=== PATIENT | male | born 1970 | race African-American/Black ===

== ENCOUNTER 2021-12-06 13:09 | Inpatient (IN) | payer MEDICAID ==
[~2021-12-06] VITALS: Ht 182.9 cm; Wt 102.5 kg
[~2021-12-06 13:09] MED LIST: ALEVE
[2021-12-06] MEDS ORDERED: HYDROCODONE/ACETAMINOPHEN 5/325MG TABLET PO ONE (14:45)
[2021-12-06] MEDS ORDERED: MORPHINE SULFATE 4 MG/ML CPJ (NOT FOR IM USE) IV STA (15:51)
[2021-12-06] MEDS ORDERED: ONDANSETRON HCL 4MG/2ML INJ IV STA (15:51)
[2021-12-06 16:14] LABS: BASOPHILS % 0.4 % (0.0-2.0); EOSINOPHILS % 0.1 % (0.0-5.0); HEMATOCRIT. 40.7 % (42.0-52.0); HEMOGLOBIN. 13.8 g/dL (14.0-18.0); LYMPHOCYTES % 16.5 % (20.0-50.0); MEAN CORPUSCULAR HEMOGLOBIN 32.9 pg (28.0-32.0); MEAN CORPUSCULAR VOLUME 96.8 fL (80.0-94.0); MEAN PLATELET VOLUME 8.3 fl (7.4-10.4); MONOCYTES % 6.4 % (2.0-8.0); NEUTROPHILS % 76.6 % (40.0-76.0); PLATELET 211 x1000/uL (130-400); RED CELL DISTRIBUTION WIDTH 13.9 % (11.6-14.6)
[2021-12-06 16:20] LABS: CHLORIDE 112 mEq/L (98-107)
[2021-12-06] MEDS ORDERED: GUAIFENESIN 200MG/10ML SUGAR FREE UDC PO PRN (17:00)
[2021-12-06] MEDS ORDERED: MAGNESIUM/ALUMINUM HYDROXIDE/SIMETHICONE 30ML UDC PO PRN (17:00)
[2021-12-06] MEDS ORDERED: DOCUSATE SODIUM 100MG CAPSULE PO PRN (17:00)
[2021-12-06] MEDS ORDERED: IPRATROPIUM/ALBUTEROL 0.5-3(2.5)MG/3ML NEB NEB PRN (17:00)
[2021-12-06] MEDS ORDERED: ONDANSETRON HCL 4MG/2ML INJ IV PRN (17:00)
[2021-12-06] MEDS ORDERED: NITROGLYCERIN 0.4MG TABLET SL SL PRN (17:00)
[2021-12-06] MEDS ORDERED: CLONIDINE 0.1MG TABLET PO PRN (17:00)
[2021-12-06] MEDS ORDERED: ACETAMINOPHEN 325MG TABLET PO PRN ×2 (17:00)
[2021-12-06] MEDS ORDERED: NALOXONE HCL 0.4MG/ML VIAL IV PRN (17:30)
[2021-12-06 17:51] LABS: ETHANOL BLOOD < 10 mg/dL
[2021-12-06 17:53] LABS: TOTAL IRON BINDING CAPACITY 365 ug/dL (250-450)
[2021-12-06] MEDS: MORPHINE SULFATE 2 MG/ML CPJ (NOT FOR IM USE) IV PRN ×2 (17:58→22:46)
[2021-12-06] MEDS ORDERED: ENOXAPARIN 30MG/0.3ML SYR SUBCUT SCH (18:00)
[2021-12-06 18:06] LABS: FOLIC ACID (FOLATE) SERUM 13.5 ng/mL (>5.38)
[2021-12-06] MEDS: KETOROLAC 15MG/ML VIAL IV PRN (20:25)
[2021-12-06] MEDS: FAMOTIDINE 20MG TABLET PO SCH (22:44)
[2021-12-06] MEDS: ENOXAPARIN 30MG/0.3ML SYR SUBCUT SCH (22:45)
[2021-12-07 03:15] VITALS: BP 166/98
[2021-12-07] MEDS: MORPHINE SULFATE 2 MG/ML CPJ (NOT FOR IM USE) IV PRN ×5 (03:56→23:21)
[2021-12-07 04:00] VITALS: BP 166/98
[2021-12-07 08:00] VITALS: BP 134/85
[2021-12-07] MEDS: ENOXAPARIN 30MG/0.3ML SYR SUBCUT SCH ×2 (09:00→22:48)
[2021-12-07] MEDS: KETOROLAC 15MG/ML VIAL IV PRN (10:06)
[2021-12-07] MEDS: FAMOTIDINE 20MG TABLET PO SCH ×2 (10:09→22:06)
[2021-12-07 11:56] LABS: BASOPHILS % 0.4 % (0.0-2.0); EOSINOPHILS % 0.4 % (0.0-5.0); HEMATOCRIT. 37.4 % (42.0-52.0); HEMOGLOBIN. 12.7 g/dL (14.0-18.0); LYMPHOCYTES % 34.5 % (20.0-50.0); MEAN CORPUSCULAR HEMOGLOBIN 32.5 pg (28.0-32.0); MEAN CORPUSCULAR VOLUME 95.7 fL (80.0-94.0); MEAN PLATELET VOLUME 8.4 fl (7.4-10.4); MONOCYTES % 6.8 % (2.0-8.0); NEUTROPHILS % 57.9 % (40.0-76.0); PLATELET 210 x1000/uL (130-400); RED BLOOD CELL COUNT 3.91 mill/uL (4.7-6.1); RED CELL DISTRIBUTION WIDTH 13.9 % (11.6-14.6)
[2021-12-07 12:00] VITALS: BP 147/94
[2021-12-07 12:11] LABS: CHLORIDE 111 mEq/L (98-107)
[2021-12-07 12:15] LABS: PHOSPHORUS 2.5 mg/dL (2.5-4.9)
[2021-12-07 16:00] VITALS: BP 151/88
[2021-12-07 18:30] LABS: *AMPHETAMINES SCREEN URINE NEGATIVE (NEGATIVE)
[2021-12-07 18:31] LABS: *BARBITURATES SCREEN URINE NEGATIVE (NEGATIVE); *BENZODIAZEPINES SCREEN URINE NEGATIVE (NEGATIVE); *COCAINE SCREEN URINE NEGATIVE (NEGATIVE); CANNABINOID URINE SCREEN PRESUMTIVE POSITIVE (NEGATIVE); METHADONE URINE SCREEN NEGATIVE (NEGATIVE); OPIATES URINE SCREEN PRESUMTIVE POSITIVE (NEGATIVE); PHENCYCLIDINE URINE SCREEN NEGATIVE (NEGATIVE)
[2021-12-07 20:00] VITALS: BP 156/91
[2021-12-07] MEDS ORDERED: KETOROLAC 30MG/ML VIAL ONE (21:54)
[2021-12-08 02:00] VITALS: BP 143/89
[2021-12-08] MEDS: MORPHINE SULFATE 2 MG/ML CPJ (NOT FOR IM USE) IV PRN ×3 (07:36→21:20)
[2021-12-08 08:00] VITALS: BP 156/90
[2021-12-08] MEDS: FAMOTIDINE 20MG TABLET PO SCH ×2 (09:24→21:29)
[2021-12-08] MEDS: ENOXAPARIN 30MG/0.3ML SYR SUBCUT SCH ×2 (09:26→21:00)
[2021-12-08 12:00] VITALS: BP 150/83
[2021-12-08] MEDS ORDERED: AMLODIPINE 5MG TABLET PO SCH (14:00)
[2021-12-08 16:00] VITALS: BP 167/92
[2021-12-08] MEDS: KETOROLAC 15MG/ML VIAL IV PRN (16:59)
[2021-12-08] MEDS: AMLODIPINE 5MG TABLET PO SCH (17:00)
[2021-12-08 19:45] LABS: BASOPHILS % 0.5 % (0.0-2.0); EOSINOPHILS % 0.9 % (0.0-5.0); HEMATOCRIT. 40.7 % (42.0-52.0); HEMOGLOBIN. 12.9 g/dL (14.0-18.0); LYMPHOCYTES % 27.1 % (20.0-50.0); MEAN CORPUSCULAR HEMOGLOBIN 32.9 pg (28.0-32.0); MEAN CORPUSCULAR VOLUME 104.3 fL (80.0-94.0); MEAN PLATELET VOLUME 8.2 fl (7.4-10.4); MONOCYTES % 8.8 % (2.0-8.0); NEUTROPHILS % 62.7 % (40.0-76.0); PLATELET 180 x1000/uL (130-400); RED BLOOD CELL COUNT 3.91 mill/uL (4.7-6.1); RED CELL DISTRIBUTION WIDTH 14.8 % (11.6-14.6)
[2021-12-08 19:51] LABS: CHLORIDE 109 mEq/L (98-107)
[2021-12-08 20:00] VITALS: BP 124/86
[2021-12-08] MEDS: ZOLPIDEM TARTRATE 5MG TABLET PO PRN (23:22)
[2021-12-09] VITALS: BP 141/87
[2021-12-09] MEDS: MORPHINE SULFATE 2 MG/ML CPJ (NOT FOR IM USE) IV PRN ×3 (03:21→20:33)
[2021-12-09 04:00] VITALS: BP 104/70
[2021-12-09 06:52] LABS: CHLORIDE 107 mEq/L (98-107)
[2021-12-09 06:58] LABS: BASOPHILS % 0.4 % (0.0-2.0); EOSINOPHILS % 1.2 % (0.0-5.0); HEMATOCRIT. 34.5 % (42.0-52.0); LYMPHOCYTES % 31.2 % (20.0-50.0); MEAN CORPUSCULAR VOLUME 94.7 fL (80.0-94.0); MEAN PLATELET VOLUME 8.3 fl (7.4-10.4); MONOCYTES % 7.3 % (2.0-8.0); NEUTROPHILS % 59.9 % (40.0-76.0); PLATELET 194 x1000/uL (130-400); RED BLOOD CELL COUNT 3.64 mill/uL (4.7-6.1); RED CELL DISTRIBUTION WIDTH 13.3 % (11.6-14.6)
[2021-12-09 08:00] VITALS: BP 168/99
[2021-12-09] MEDS ORDERED: LIDOCAINE HCL/EPINEPHRINE 1%-EPI 1:100,000 50 ML VIAL INFIL ONE (08:39)
[2021-12-09] MEDS ORDERED: POLYMYXIN B SULFATE 500000 UNITS/VIAL ONE (08:39)
[2021-12-09] MEDS ORDERED: VANCOMYCIN HCL 1 GM/VIAL ONE (08:39)
[2021-12-09] MEDS: AMLODIPINE 5MG TABLET PO SCH ×2 (09:00→19:09)
[2021-12-09] MEDS: FAMOTIDINE 20MG TABLET PO SCH ×2 (09:00→20:33)
[2021-12-09] MEDS: ENOXAPARIN 30MG/0.3ML SYR SUBCUT SCH ×2 (09:00→20:32)
[2021-12-09] MEDS: SODIUM CHLORIDE 0.45% 1,000 ML IV SCH (11:04)
[2021-12-09] MEDS ORDERED: MIDAZOLAM HCL 2 MG/2 ML VIAL ONE (12:29)
[2021-12-09] MEDS ORDERED: FENTANYL CITRATE/PF 50MCG/ML 2ML VIAL ONE (12:29)
[2021-12-09] MEDS ORDERED: PROPOFOL 200MG/20ML VIAL IV ONE (12:29)
[2021-12-09] MEDS ORDERED: DEXAMETHASONE 4MG/ML 1ML VIAL ONE (12:38)
[2021-12-09] MEDS ORDERED: ONDANSETRON HCL 4MG/2ML INJ ONE (12:38)
[2021-12-09] MEDS ORDERED: HYDROMORPHONE HCL/PF 2MG/ML (OR) ONE (13:02)
[2021-12-09] MEDS ORDERED: ONDANSETRON HCL 4MG/2ML INJ IV PRN (13:15)
[2021-12-09] MEDS ORDERED: HYDROMORPHONE HCL/PF 2MG/ML CPJ IV PRN (13:15)
[2021-12-09] MEDS ORDERED: MEPERIDINE HCL/PF 25MG/ML CPJ IV PRN (13:15)
[2021-12-09] MEDS ORDERED: LABETALOL 5MG/ML SYR 20 MG/4 ML SYRINGE IV PRN (13:15)
[2021-12-09 14:00] VITALS: BP 159/100
[2021-12-09 16:00] VITALS: BP 146/90
[2021-12-09] MEDS: CEFAZOLIN 2,000 MG in DEXT 5% WATER 100 ML IV SCH (19:10)
[2021-12-09 20:00] VITALS: BP 153/87
[2021-12-09] MEDS: TRAMADOL 50MG TABLET PO PRN (22:49)
[2021-12-10] VITALS (7 sets, daily range): BP systolic 129–166; BP diastolic 80–98
[2021-12-10] MEDS: MORPHINE SULFATE 2 MG/ML CPJ (NOT FOR IM USE) IV PRN ×4 (00:54→12:51)
[2021-12-10] MEDS: SODIUM CHLORIDE 0.45% 1,000 ML IV SCH ×2 (01:12→10:31)
[2021-12-10] MEDS: CEFAZOLIN 2,000 MG in DEXT 5% WATER 100 ML IV SCH ×3 (01:18→16:02)
[2021-12-10] MEDS: ZOLPIDEM TARTRATE 5MG TABLET PO PRN (02:10)
[2021-12-10] MEDS: TRAMADOL 50MG TABLET PO PRN (07:01)
[2021-12-10] MEDS: ENOXAPARIN 30MG/0.3ML SYR SUBCUT SCH ×2 (09:00→22:01)
[2021-12-10] MEDS: AMLODIPINE 5MG TABLET PO SCH ×2 (10:25→17:55)
[2021-12-10] MEDS: HYDROCODONE/ACETAMINOPHEN 10/325MG TABLET PO PRN ×2 (10:28→16:21)
[2021-12-10] MEDS: FAMOTIDINE 20MG TABLET PO SCH ×2 (10:29→22:01)
[2021-12-10] MEDS ORDERED: REGADENOSON 0.4 MG/5 ML IV ONE (15:30)
[2021-12-11] VITALS: BP 155/78
[2021-12-11] MEDS: CEFAZOLIN 2,000 MG in DEXT 5% WATER 100 ML IV SCH ×2 (00:29→09:11)
[2021-12-11] MEDS: SODIUM CHLORIDE 0.45% 1,000 ML IV SCH (00:30)
[2021-12-11] MEDS: HYDROCODONE/ACETAMINOPHEN 10/325MG TABLET PO PRN ×7 (03:51→21:22)
[2021-12-11 04:00] VITALS: BP 152/85
[2021-12-11 08:00] VITALS: BP 139/80
[2021-12-11] MEDS: ENOXAPARIN 30MG/0.3ML SYR SUBCUT SCH ×2 (09:00→21:25)
[2021-12-11] MEDS: FAMOTIDINE 20MG TABLET PO SCH ×2 (09:12→21:22)
[2021-12-11] MEDS: AMLODIPINE 5MG TABLET PO SCH ×2 (09:12→17:12)
[2021-12-11] MEDS ORDERED: REGADENOSON 0.4 MG/5 ML IV NR (11:30)
[2021-12-11] MEDS: CYANOCOBALAMIN 1000MCG/ML VIAL IM SCH (14:00)
[2021-12-11 16:10] VITALS: BP 142/88
[2021-12-11 20:00] VITALS: BP 113/71
[2021-12-12] VITALS: BP 138/69
[2021-12-12 04:00] VITALS: BP 148/58
[2021-12-12] MEDS: HYDROCODONE/ACETAMINOPHEN 10/325MG TABLET PO PRN ×3 (04:43→18:07)
[2021-12-12] MEDS: CYANOCOBALAMIN 1000MCG/ML VIAL IM SCH ×2 (09:00→11:25)
[2021-12-12] MEDS: FAMOTIDINE 20MG TABLET PO SCH ×2 (09:20→20:04)
[2021-12-12] MEDS: AMLODIPINE 5MG TABLET PO SCH ×2 (09:20→18:04)
[2021-12-12] MEDS: ENOXAPARIN 30MG/0.3ML SYR SUBCUT SCH ×2 (11:25→20:04)
[2021-12-12 12:00] VITALS: BP 132/91
[2021-12-12] MEDS: POLYETHYLENE GLYCOL 3350 (17GM) 1 DOSE PACK PO SCH (15:02)
[2021-12-12 16:00] VITALS: BP 146/75
[2021-12-12 20:00] VITALS: BP 123/69
[2021-12-13] VITALS: BP 112/77
[2021-12-13 04:00] VITALS: BP 116/70
[2021-12-13 08:00] VITALS: BP 119/69
[2021-12-13] MEDS: CYANOCOBALAMIN 1000MCG/ML VIAL IM SCH (09:00)
[2021-12-13] MEDS: POLYETHYLENE GLYCOL 3350 (17GM) 1 DOSE PACK PO SCH (09:00)
[2021-12-13] MEDS: AMLODIPINE 5MG TABLET PO SCH ×2 (09:54→18:00)
[2021-12-13] MEDS: FAMOTIDINE 20MG TABLET PO SCH ×2 (09:54→22:07)
[2021-12-13] MEDS: HYDROCODONE/ACETAMINOPHEN 10/325MG TABLET PO PRN ×4 (09:54→22:27)
[2021-12-13] MEDS: ENOXAPARIN 30MG/0.3ML SYR SUBCUT SCH ×2 (09:58→22:07)
[2021-12-13 12:00] VITALS: BP 117/84
[2021-12-13] MEDS: LACTULOSE 20G/30ML UDC PO SCH ×2 (12:04→22:08)
[2021-12-13 16:00] VITALS: BP 117/78
[2021-12-13 20:00] VITALS: BP 117/69
[2021-12-13] MEDS: ATORVASTATIN CALCIUM 10MG TABLET PO SCH (22:08)
[2021-12-14] VITALS (7 sets, daily range): BP systolic 124–143; BP diastolic 74–81
[2021-12-14] MEDS: POLYETHYLENE GLYCOL 3350 (17GM) 1 DOSE PACK PO SCH (08:51)
[2021-12-14] MEDS: ENOXAPARIN 30MG/0.3ML SYR SUBCUT SCH ×2 (08:51→20:46)
[2021-12-14] MEDS: FAMOTIDINE 20MG TABLET PO SCH ×2 (08:52→20:51)
[2021-12-14] MEDS: AMLODIPINE 5MG TABLET PO SCH ×2 (08:52→16:48)
[2021-12-14] MEDS: HYDROCODONE/ACETAMINOPHEN 10/325MG TABLET PO PRN ×3 (09:41→23:47)
[2021-12-14] MEDS ORDERED: BISACODYL 10MG SUPP PR NR (11:30)
[2021-12-14] MEDS ORDERED: SENN-257 MT (16:04)
[2021-12-14] MEDS ORDERED: HYDR-4009 MT (16:04)
[2021-12-14] MEDS ORDERED: ATOR10TA MT (16:04)
[2021-12-14] MEDS ORDERED: AMLO5TAB88 PO (16:04)
[2021-12-14] MEDS: LACTULOSE 20G/30ML UDC PO SCH (20:41)
[2021-12-14] MEDS: ATORVASTATIN CALCIUM 10MG TABLET PO SCH (20:51)
[2021-12-15] VITALS: BP 147/66
== END 2021-12-15 01:00 | disposition home health service (06) | DRG 308 ==
LOC: ER 13:39 → MICUSO 16:19 → EDBEDREQ 16:22 → EDBEDREQTM 16:22 → ENRESERV 23:13 → 6EST 12-07 02:16
PROVIDERS: ADMIT Internal Medicine; ATTEND Internal Medicine
PROC: 0QSB04Z Reposition Right Lower Femur with Internal Fixation Device, Open Approach (ICD-10-PCS; principal; 2021-12-09)
DX: S72.491A Other fracture of lower end of right femur, initial encounter for closed fracture (principal); D63.8 Anemia in other chronic diseases classified elsewhere; D62 Acute posthemorrhagic anemia; Z68.30 Body mass index [BMI] 30.0-30.9, adult; E66.9 Obesity, unspecified; I10 Essential (primary) hypertension; R53.81 Other malaise; W18.39XA Other fall on same level, initial encounter; Z20.822 Contact with and (suspected) exposure to COVID-19; G24.9 Dystonia, unspecified; E61.1 Iron deficiency; X50.0XXA Overexertion from strenuous movement or load, initial encounter; Z87.19 Personal history of other diseases of the digestive system; Z87.891 Personal history of nicotine dependence; Z82.49 Family history of ischemic heart disease and other diseases of the circulatory system; Y93.89 Activity, other specified; Y92.89 Other specified places as the place of occurrence of the external cause; Y99.8 Other external cause status
CPT/HCPCS: 36415; 71045; 73502; 73552; 73562; 73700; 76000; 78452; 80048; 80053; 80061; 80305; 80320; 82607; 82746; 83540; 83550; 83735; 84100; 84484; 85025; 86850; 86900; 87426; 93005; 93017; 93306; 93970; 97116; 97162; 97166; 97530; 97535; 99285; A9500; C1713; C1893; J0690; J1100; J1170; J1650; J1885; J2250; J2270; J2405; J2704; J2785; J3010; J3370; J3420; J3490; J7060; G0480